=== PATIENT | male | born 1990 ===

== ENCOUNTER → 2016-05-01 | Outpatient (CLI) | payer BC ==
--- NOTE | 2016-05-01 13:10 | DIAGNOSTIC IMAGING REPORT ---
FUSION CT SINUSES W/O HISTORY: Frontal headache. Nasal congestion. J34.2 Nasal septal [id number] Hypertrophy of both inferior n TECHNIQUE: Multiaxial CT images of the sinuses were performed reformatted in the coronal plane without the use of intravenous contrast. Fusion CT sinus protocol was also obtained. COMPARISON STUDY: None. FINDINGS: Mild mucosal thickening within the frontal sinuses. Partial opacification of the right frontoethmoidal recess. There is mild mucosal thickening and a few partially opacified ethmoid air cells. Moderate mucosal thickening within the right sphenoid sinus and mild mucosal thickening within the left sphenoid sinus. The mastoid air cells are clear. Moderate mucosal thickening within the bilateral maxillary sinuses with a few slightly hyperdense retention cysts. The largest on the right measures 2.1 cm. No fluid levels within the paranasal sinuses. Small focal defect within the left maxillary sinus medial wall may be due to postoperative change. Mild left nasal septal deviation. The left ostiomeatal unit is patent. The right ostiomeatal unit is opacified. Lamina papyracea and orbital floors are intact. Anterior clinoids are partially pneumatized. Visualized brain parenchyma and orbits are unremarkable. IMPRESSION: 1. Mild/moderate chronic sinus disease as described above. No fluid levels within the paranasal sinuses. 2. Mild left nasal septal deviation. 3. The right ostiomeatal unit is opacified 4. Small focal defect within the medial wall of the left maxillary sinus which may be due to postoperative change. Electronically signed by: River Meyer M.D. 05/01/2016 1:09 PM Dictated Date/Time: 05/01/2016 1:03 PM
== END | disposition home or self-care (01) ==
LOC: C.CTS 12:43
DX: J34.2 Deviated nasal septum (principal); J32.9 Chronic sinusitis, unspecified; J34.3 Hypertrophy of nasal turbinates; R09.81 Nasal congestion; R51 Headache

== ENCOUNTER → 2017-03-19 | Outpatient (CLI) | payer BC | END | disposition home or self-care (01) | LOC: C.LABBC 14:38 | PROVIDERS: ATTEND Nurse Practitioner Adult Health | DX: R00.2 Palpitations (principal) ==